=== PATIENT | female | born 1940 | race Asian ===

== ENCOUNTER 2019-09-18 11:24 | Inpatient (IN) | payer MEDICAID ==
[~2019-09-18] VITALS: Ht 152.4 cm; Wt 44.4 kg
[2019-09-18] MEDS ORDERED: SODIUM CHLORIDE 0.9% 100 ML ONE (11:37)
[2019-09-18] MEDS ORDERED: IOVERSOL 350 MG/ML 100 ML VIAL ONE (11:37)
[2019-09-18 11:40] LABS: BASOPHILS % (AUTO) 0.9 % (0.0-2.0); HEMATOCRIT 38.1 % (36-46); HEMOGLOBIN 12.9 g/dL (12.0-16.0); LYMPHOCYTES # (AUTO) 2.4 K/uL (1.0-4.8); LYMPHOCYTES % (AUTO) 44.6 % (22.0-44.0); MEAN CORPUSCULAR HEMOGLOBIN 29.4 pg (26.0-34.0); MEAN CORPUSCULAR HGB CONC 33.9 G/dL (31.0-37.0); MEAN CORPUSCULAR VOLUME 87 fL (80-100); MONOCYTES # (AUTO) 0.6 K/uL (0.1-1.0); MONOCYTES % (AUTO) 10.8 % (2.0-9.0); NEUTROPHILS # (AUTO) 2.3 K/uL (1.8-7.7); NEUTROPHILS % (AUTO) 41.7 % (40.0-70.0); PLATELET COUNT (AUTO) 207 K/uL (150-450); RED BLOOD CELL COUNT(AUTO) 4.39 MIL/uL (4.00-5.20); RED CELL DISTRIBUTION WIDTH 14.1 % (11.5-14.5)
[2019-09-18] MEDS ORDERED: NiCARDipine HCL 25 MG in DEXTROSE 5%-WATER 240 ML IV PRN ×2 (12:00→22:11)
[2019-09-18 12:03] LABS: CALCIUM, TOTAL 9.3 mg/dL (8.8-10.5); CREATININE 0.97 mg/dL (0.60-1.30); POTASSIUM 3.9 mmol/L (3.5-5.1)
[2019-09-18 12:06] LABS: PROTHROMBIN TIME 10.4 SEC (9.4-11.6)
[2019-09-18 12:08] LABS: ALBUMIN 3.8 g/dL (3.4-5.0); BILIRUBIN,TOTAL 0.7 mg/dL (0.1-1.0); TOTAL PROTEIN, SERUM 7.6 g/dL (6.4-8.2)
[2019-09-18] MEDS ORDERED: NITROGLYCERIN 2% (1 GM=INCH) PACKET TP ONE (12:45)
[2019-09-18] MEDS ORDERED: ASPIRIN 300 MG RECTAL SUPPOSITORY PR ONE (12:45)
[2019-09-18 13:16] LABS: AMPHET/METH SCREEN,URINE NEGATIVE (NEGATIVE); BARBITURATE SCREEN, URINE NEGATIVE (NEGATIVE); BENZODIAZEPINES SCREEN,URINE NEGATIVE (NEGATIVE); CANNABINOID SCREEN,URINE NEGATIVE (NEGATIVE); COCAINE SCREEN,URINE NEGATIVE (NEGATIVE); METHADONE SCREEN, URINE NEGATIVE (NEGATIVE); OPIATE SCREEN,URINE NEGATIVE (NEGATIVE)
[2019-09-18 13:18] LABS: PHENCYCLIDINE SCREEN,URINE NEGATIVE (NEGATIVE)
[2019-09-18 13:20] LABS: APPEARANCE,URINE CLEAR (CLEAR); BILIRUBIN,URINE NEGATIVE (NEGATIVE); GLUCOSE, URINE (UA) NEGATIVE (NEGATIVE); KETONES,URINE NEGATIVE (NEGATIVE); LEUKOCYTE ESTERASE ,URINE NEGATIVE (NEGATIVE); NITRATE,URINE NEGATIVE (NEGATIVE); OCCULT BLOOD,URINE NEGATIVE (NEGATIVE); PH,URINE 7.5 (5.0-8.0); PROTEIN,URINE NEGATIVE (NEGATIVE); UROBILINOGEN,URINE 0.2 mg/dL (<=1.0)
[2019-09-18 13:39] LABS: BACTERIA,URINE None Seen /HPF (None Seen); RBC,URINE None Seen /HPF (0-2); WBC,URINE None Seen /HPF (0-5)
[2019-09-18] MEDS ORDERED: ACETAMINOPHEN 325 MG TABLET PO PRN (15:15)
[2019-09-18] MEDS ORDERED: 0.9% SODIUM CHLORIDE 10 ML SYRINGE IVP PRN (15:15)
[2019-09-18] MEDS ORDERED: ONDANSETRON HCL 4 MG/2 ML VIAL IVP PRN ×2 (15:15→22:15)
[2019-09-18 15:30] VITALS: BP 156/66
[2019-09-18 16:00] VITALS: BP 156/66
[2019-09-18] MEDS ORDERED: ACETAMINOPHEN 650 MG RECTAL SUPPOSITORY PR PRN (17:15)
[2019-09-18 20:00] VITALS: BP 173/74
[2019-09-18] MEDS ORDERED: MAGNESIUM HYDROXIDE SUSPENSION 30 ML UDCUP PO PRN (22:15)
[2019-09-18] MEDS ORDERED: ALBUTEROL SULFATE 2.5 MG/0.5 ML NEB SOLUTION NEB PRN (22:15)
[2019-09-18] MEDS ORDERED: BISACODYL 10 MG RECTAL RECTAL SUPPOSITORY PR PRN (22:15)
[2019-09-18] MEDS ORDERED: MORPHINE SULFATE 2 MG/ML SYRINGE IVP PRN (22:15)
[2019-09-18] MEDS ORDERED: IPRATROPIUM BROMIDE 0.5 MG/2.5 ML NEB SOLUTION NEB PRN (22:15)
[2019-09-19] VITALS: BP 166/68
[2019-09-19] MEDS: HEPARIN SODIUM,PORCINE 5,000 UNITS/ML VIAL SQ SCH ×3 (00:29→17:06)
[2019-09-19 04:00] VITALS: BP 152/60
[2019-09-19 05:38] LABS: BASOPHILS % (AUTO) 0.7 % (0.0-2.0); EOSINOPHILS % (AUTO) 0.4 % (1.0-6.0); HEMATOCRIT 41.2 % (36-46); HEMOGLOBIN 14.2 g/dL (12.0-16.0); LYMPHOCYTES # (AUTO) 1.5 K/uL (1.0-4.8); LYMPHOCYTES % (AUTO) 16.8 % (22.0-44.0); MEAN CORPUSCULAR HEMOGLOBIN 29.7 pg (26.0-34.0); MEAN CORPUSCULAR HGB CONC 34.5 G/dL (31.0-37.0); MEAN CORPUSCULAR VOLUME 86 fL (80-100); MONOCYTES # (AUTO) 0.6 K/uL (0.1-1.0); MONOCYTES % (AUTO) 6.3 % (2.0-9.0); NEUTROPHILS % (AUTO) 75.8 % (40.0-70.0); PLATELET COUNT (AUTO) 226 K/uL (150-450); RED BLOOD CELL COUNT(AUTO) 4.78 MIL/uL (4.00-5.20); RED CELL DISTRIBUTION WIDTH 14.2 % (11.5-14.5)
[2019-09-19 05:49] LABS: GLUCOSE,POINT OF CARE 169 MG/DL (70-110)
[2019-09-19 06:07] LABS: BILIRUBIN,TOTAL 0.7 mg/dL (0.1-1.0); CALCIUM, TOTAL 9.2 mg/dL (8.8-10.5); CREATININE 1.18 mg/dL (0.60-1.30); FREE T4 (FREE THYROXINE) 1.15 ng/dL (0.76-1.46); POTASSIUM 3.7 mmol/L (3.5-5.1); THYROID STIMULATING HORMONE 2.38 uIU/mL (0.36-3.74); TOTAL PROTEIN, SERUM 8.5 g/dL (6.4-8.2)
[2019-09-19 08:00] VITALS: BP 195/46
[2019-09-19] MEDS ORDERED: ASPIRIN 81 MG EC TABLET PO SCH (09:00)
[2019-09-19 10:33] LABS: CHOL/HDL RATIO 4.8 (3.9-5.7)
[2019-09-19] MEDS: DOCUSATE SODIUM 100 MG CAPSULE PO SCH ×2 (11:29→22:02)
[2019-09-19] MEDS: ASPIRIN 81 MG CHEWABLE TABLET PO SCH (11:29)
[2019-09-19] MEDS: CLOPIDOGREL BISULFATE 75 MG TABLET PO SCH (11:29)
[2019-09-19 11:41] LABS: GLUCOSE,POINT OF CARE 145 MG/DL (70-110)
[2019-09-19 12:00] VITALS: BP 151/59
[2019-09-19] MEDS ORDERED: ENALAPRILAT DIHYDRATE 1.25 MG/ML VIAL IVP PRN (12:15)
[2019-09-19] MEDS: NIFEdipine 30 MG ER TABLET PO SCH (13:50)
[2019-09-19] MEDS: LISINOPRIL 5 MG TABLET PO SCH ×2 (13:50→22:02)
[2019-09-19] MEDS: ACETAMINOPHEN 325 MG TABLET PO PRN ×2 (15:46→22:16)
[2019-09-19 16:00] VITALS: BP 138/67
[2019-09-19 19:00] VITALS: BP 146/68
[2019-09-19] MEDS: ATORVASTATIN CALCIUM 40 MG TABLET PO SCH (22:02)
[2019-09-20] VITALS (7 sets, daily range): BP systolic 135–177; BP diastolic 60–75
[2019-09-20] MEDS: HEPARIN SODIUM,PORCINE 5,000 UNITS/ML VIAL SQ SCH ×4 (02:20→23:37)
[2019-09-20 06:54] LABS: BASOPHILS % (AUTO) 0.5 % (0.0-2.0); EOSINOPHILS % (AUTO) 0.6 % (1.0-6.0); HEMATOCRIT 35.6 % (36-46); HEMOGLOBIN 12.2 g/dL (12.0-16.0); LYMPHOCYTES # (AUTO) 2.3 K/uL (1.0-4.8); LYMPHOCYTES % (AUTO) 27.5 % (22.0-44.0); MEAN CORPUSCULAR HEMOGLOBIN 29.7 pg (26.0-34.0); MEAN CORPUSCULAR HGB CONC 34.1 G/dL (31.0-37.0); MEAN CORPUSCULAR VOLUME 87 fL (80-100); MONOCYTES # (AUTO) 0.9 K/uL (0.1-1.0); MONOCYTES % (AUTO) 11.5 % (2.0-9.0); NEUTROPHILS % (AUTO) 59.9 % (40.0-70.0); PLATELET COUNT (AUTO) 217 K/uL (150-450); RED CELL DISTRIBUTION WIDTH 14.2 % (11.5-14.5)
[2019-09-20 07:20] LABS: ALBUMIN 3.2 g/dL (3.4-5.0); BILIRUBIN,TOTAL 0.6 mg/dL (0.1-1.0); CALCIUM, TOTAL 9.1 mg/dL (8.8-10.5); CREATININE 1.43 mg/dL (0.60-1.30); PHOSPHORUS 4.4 mg/dL (2.5-4.9); POTASSIUM 3.6 mmol/L (3.5-5.1); TOTAL PROTEIN, SERUM 7.1 g/dL (6.4-8.2)
[2019-09-20] MEDS: LISINOPRIL 5 MG TABLET PO SCH ×2 (09:02→21:37)
[2019-09-20] MEDS: CLOPIDOGREL BISULFATE 75 MG TABLET PO SCH (09:02)
[2019-09-20] MEDS: ASPIRIN 81 MG CHEWABLE TABLET PO SCH (09:03)
[2019-09-20] MEDS: NIFEdipine 30 MG ER TABLET PO SCH ×2 (09:04→21:37)
[2019-09-20] MEDS: DOCUSATE SODIUM 100 MG CAPSULE PO SCH ×2 (09:04→21:36)
[2019-09-20] MEDS: ACETAMINOPHEN 325 MG TABLET PO PRN ×3 (09:09→21:37)
[2019-09-20] MEDS: ATORVASTATIN CALCIUM 40 MG TABLET PO SCH (21:36)
[2019-09-21 05:03] VITALS: BP 159/74
[2019-09-21 06:16] LABS: BASOPHILS % (AUTO) 0.8 % (0.0-2.0); EOSINOPHILS % (AUTO) 1.8 % (1.0-6.0); HEMOGLOBIN 11.9 g/dL (12.0-16.0); LYMPHOCYTES # (AUTO) 2.1 K/uL (1.0-4.8); LYMPHOCYTES % (AUTO) 27.8 % (22.0-44.0); MEAN CORPUSCULAR HEMOGLOBIN 29.2 pg (26.0-34.0); MEAN CORPUSCULAR HGB CONC 33.2 G/dL (31.0-37.0); MEAN CORPUSCULAR VOLUME 88 fL (80-100); MONOCYTES # (AUTO) 0.9 K/uL (0.1-1.0); MONOCYTES % (AUTO) 12.5 % (2.0-9.0); NEUTROPHILS # (AUTO) 4.2 K/uL (1.8-7.7); NEUTROPHILS % (AUTO) 57.1 % (40.0-70.0); PLATELET COUNT (AUTO) 193 K/uL (150-450); RED BLOOD CELL COUNT(AUTO) 4.09 MIL/uL (4.00-5.20); RED CELL DISTRIBUTION WIDTH 14.5 % (11.5-14.5)
[2019-09-21 06:39] LABS: BILIRUBIN,TOTAL 0.5 mg/dL (0.1-1.0); CREATININE 1.08 mg/dL (0.60-1.30); POTASSIUM 3.8 mmol/L (3.5-5.1)
[2019-09-21 07:22] VITALS: BP 149/78
[2019-09-21] MEDS: HEPARIN SODIUM,PORCINE 5,000 UNITS/ML VIAL SQ SCH ×2 (08:00→17:05)
[2019-09-21] MEDS: CLOPIDOGREL BISULFATE 75 MG TABLET PO SCH (09:02)
[2019-09-21] MEDS: NIFEdipine 30 MG ER TABLET PO SCH ×2 (09:02→20:56)
[2019-09-21] MEDS: ASPIRIN 81 MG CHEWABLE TABLET PO SCH (09:02)
[2019-09-21] MEDS: LISINOPRIL 5 MG TABLET PO SCH ×2 (09:02→20:56)
[2019-09-21] MEDS: DOCUSATE SODIUM 100 MG CAPSULE PO SCH ×2 (09:02→20:57)
[2019-09-21 10:59] VITALS: BP 135/63
[2019-09-21] MEDS: ACETAMINOPHEN 325 MG TABLET PO PRN ×2 (12:45→20:57)
[2019-09-21] MEDS: HYDROCODONE/ACETAMINOPHEN 5-325 MG TABLET PO PRN (15:46)
[2019-09-21 16:09] VITALS: BP 148/62
[2019-09-21 20:25] VITALS: BP 149/77
[2019-09-21] MEDS: ATORVASTATIN CALCIUM 40 MG TABLET PO SCH (20:56)
[2019-09-21 23:45] VITALS: BP 128/89
[2019-09-22] MEDS: HEPARIN SODIUM,PORCINE 5,000 UNITS/ML VIAL SQ SCH ×4 (00:02→23:02)
[2019-09-22 06:00] VITALS: BP 165/82
[2019-09-22 07:24] VITALS: BP 174/72
[2019-09-22] MEDS: NIFEdipine 30 MG ER TABLET PO SCH ×2 (07:50→21:03)
[2019-09-22] MEDS: CLOPIDOGREL BISULFATE 75 MG TABLET PO SCH (07:50)
[2019-09-22] MEDS: LISINOPRIL 5 MG TABLET PO SCH ×2 (07:50→21:04)
[2019-09-22] MEDS: DOCUSATE SODIUM 100 MG CAPSULE PO SCH ×2 (07:50→21:04)
[2019-09-22] MEDS: ASPIRIN 81 MG CHEWABLE TABLET PO SCH (07:51)
[2019-09-22 08:25] LABS: BASOPHILS % (AUTO) 0.5 % (0.0-2.0); EOSINOPHILS % (AUTO) 2.1 % (1.0-6.0); HEMATOCRIT 34.7 % (36-46); HEMOGLOBIN 11.6 g/dL (12.0-16.0); LYMPHOCYTES # (AUTO) 1.7 K/uL (1.0-4.8); LYMPHOCYTES % (AUTO) 23.4 % (22.0-44.0); MEAN CORPUSCULAR HEMOGLOBIN 29.3 pg (26.0-34.0); MEAN CORPUSCULAR HGB CONC 33.5 G/dL (31.0-37.0); MEAN CORPUSCULAR VOLUME 87 fL (80-100); MONOCYTES # (AUTO) 0.6 K/uL (0.1-1.0); MONOCYTES % (AUTO) 8.7 % (2.0-9.0); NEUTROPHILS # (AUTO) 4.8 K/uL (1.8-7.7); NEUTROPHILS % (AUTO) 65.3 % (40.0-70.0); PLATELET COUNT (AUTO) 196 K/uL (150-450); RED BLOOD CELL COUNT(AUTO) 3.97 MIL/uL (4.00-5.20); RED CELL DISTRIBUTION WIDTH 14.4 % (11.5-14.5)
[2019-09-22 08:38] LABS: ALANINE AMINOTRANSFERASE 24 U/L (12-78); ALBUMIN 3.1 g/dL (3.4-5.0); ALKALINE PHOSPHATASE < 11 U/L (46-116); ANION GAP 5 mmol/L (8-16); ASPARTATE AMINOTRANSFERASE 32 U/L (15-37); BILIRUBIN,TOTAL 0.3 mg/dL (0.1-1.0); CALCIUM, TOTAL 8.8 mg/dL (8.8-10.5); CARBON DIOXIDE 30 mmol/L (22-29); CHLORIDE 105 mmol/L (98-107); CREATININE 0.75 mg/dL (0.60-1.30); GLUCOSE,RANDOM 121 mg/dL (70-110); SODIUM SERUM 140 mmol/L (136-145); TOTAL PROTEIN, SERUM 7.1 g/dL (6.4-8.2); UREA NITROGEN, BLOOD 28 mg/dL (7-18)
[2019-09-22 08:44] LABS: GLOMERULAR FILTR. RATE CALC > 60 mL/min (>60)
[2019-09-22 11:13] VITALS: BP 157/61
[2019-09-22] MEDS: ACETAMINOPHEN 325 MG TABLET PO PRN (12:04)
[2019-09-22] MEDS: HYDROCODONE/ACETAMINOPHEN 5-325 MG TABLET PO PRN (14:54)
[2019-09-22 15:30] VITALS: BP 141/69
[2019-09-22 21:03] VITALS: BP 172/92
[2019-09-22] MEDS: ATORVASTATIN CALCIUM 40 MG TABLET PO SCH (21:04)
[2019-09-22 23:55] VITALS: BP 207/92
[2019-09-23] VITALS (8 sets, daily range): BP systolic 137–187; BP diastolic 63–94
[2019-09-23] MEDS: ACETAMINOPHEN 325 MG TABLET PO PRN ×3 (01:17→20:31)
[2019-09-23 07:56] LABS: BASOPHILS % (AUTO) 0.4 % (0.0-2.0); EOSINOPHILS % (AUTO) 0.6 % (1.0-6.0); HEMATOCRIT 33.6 % (36-46); HEMOGLOBIN 11.4 g/dL (12.0-16.0); LYMPHOCYTES # (AUTO) 1.8 K/uL (1.0-4.8); LYMPHOCYTES % (AUTO) 17.7 % (22.0-44.0); MEAN CORPUSCULAR HEMOGLOBIN 29.8 pg (26.0-34.0); MEAN CORPUSCULAR VOLUME 88 fL (80-100); MONOCYTES % (AUTO) 9.7 % (2.0-9.0); NEUTROPHILS # (AUTO) 7.4 K/uL (1.8-7.7); NEUTROPHILS % (AUTO) 71.6 % (40.0-70.0); PLATELET COUNT (AUTO) 223 K/uL (150-450); RED BLOOD CELL COUNT(AUTO) 3.83 MIL/uL (4.00-5.20); RED CELL DISTRIBUTION WIDTH 14.2 % (11.5-14.5)
[2019-09-23] MEDS: NIFEdipine 30 MG ER TABLET PO SCH ×2 (08:03→20:26)
[2019-09-23] MEDS: LISINOPRIL 5 MG TABLET PO SCH ×2 (08:03→20:26)
[2019-09-23] MEDS: CLOPIDOGREL BISULFATE 75 MG TABLET PO SCH (08:03)
[2019-09-23] MEDS: ASPIRIN 81 MG CHEWABLE TABLET PO SCH (08:03)
[2019-09-23] MEDS: DOCUSATE SODIUM 100 MG CAPSULE PO SCH ×2 (08:03→20:26)
[2019-09-23] MEDS: HEPARIN SODIUM,PORCINE 5,000 UNITS/ML VIAL SQ SCH ×2 (08:04→16:29)
[2019-09-23] MEDS: HYDROCODONE/ACETAMINOPHEN 5-325 MG TABLET PO PRN (08:11)
[2019-09-23 08:19] LABS: ALBUMIN 3.1 g/dL (3.4-5.0); BILIRUBIN,TOTAL 0.3 mg/dL (0.1-1.0); CALCIUM, TOTAL 9.3 mg/dL (8.8-10.5); CREATININE 0.98 mg/dL (0.60-1.30); POTASSIUM 4.1 mmol/L (3.5-5.1); TOTAL PROTEIN, SERUM 7.4 g/dL (6.4-8.2)
[2019-09-23] MEDS: METOPROLOL TARTRATE 25 MG TABLET PO SCH (20:26)
[2019-09-23] MEDS: ATORVASTATIN CALCIUM 40 MG TABLET PO SCH (20:26)
[2019-09-24] MEDS: HEPARIN SODIUM,PORCINE 5,000 UNITS/ML VIAL SQ SCH ×4 (00:15→23:20)
[2019-09-24 05:47] VITALS: BP 172/76
[2019-09-24] MEDS: ACETAMINOPHEN 325 MG TABLET PO PRN ×2 (05:57→20:30)
[2019-09-24 06:57] LABS: BASOPHILS % (AUTO) 0.4 % (0.0-2.0); HEMATOCRIT 31.9 % (36-46); HEMOGLOBIN 10.8 g/dL (12.0-16.0); LYMPHOCYTES # (AUTO) 2.2 K/uL (1.0-4.8); LYMPHOCYTES % (AUTO) 22.8 % (22.0-44.0); MEAN CORPUSCULAR HEMOGLOBIN 29.6 pg (26.0-34.0); MEAN CORPUSCULAR HGB CONC 33.7 G/dL (31.0-37.0); MEAN CORPUSCULAR VOLUME 88 fL (80-100); MONOCYTES # (AUTO) 0.9 K/uL (0.1-1.0); MONOCYTES % (AUTO) 9.4 % (2.0-9.0); NEUTROPHILS # (AUTO) 6.2 K/uL (1.8-7.7); NEUTROPHILS % (AUTO) 65.4 % (40.0-70.0); PLATELET COUNT (AUTO) 236 K/uL (150-450); RED BLOOD CELL COUNT(AUTO) 3.63 MIL/uL (4.00-5.20); RED CELL DISTRIBUTION WIDTH 14.3 % (11.5-14.5)
[2019-09-24 07:38] LABS: BILIRUBIN,TOTAL 0.2 mg/dL (0.1-1.0); CALCIUM, TOTAL 9.4 mg/dL (8.8-10.5); POTASSIUM 4.1 mmol/L (3.5-5.1); TOTAL PROTEIN, SERUM 7.7 g/dL (6.4-8.2)
[2019-09-24 07:51] VITALS: BP 153/72
[2019-09-24] MEDS: NIFEdipine 30 MG ER TABLET PO SCH ×2 (09:06→20:29)
[2019-09-24] MEDS: DOCUSATE SODIUM 100 MG CAPSULE PO SCH ×2 (09:06→20:29)
[2019-09-24] MEDS: LISINOPRIL 5 MG TABLET PO SCH ×2 (09:06→20:29)
[2019-09-24] MEDS: CLOPIDOGREL BISULFATE 75 MG TABLET PO SCH (09:07)
[2019-09-24] MEDS: ASPIRIN 81 MG CHEWABLE TABLET PO SCH (09:07)
[2019-09-24] MEDS: METOPROLOL TARTRATE 25 MG TABLET PO SCH ×2 (09:07→20:29)
[2019-09-24 11:24] VITALS: BP 157/66
[2019-09-24 15:41] VITALS: BP 151/75
[2019-09-24 20:28] VITALS: BP 136/82
[2019-09-24] MEDS: ATORVASTATIN CALCIUM 40 MG TABLET PO SCH (20:28)
[2019-09-25 00:01] VITALS: BP 136/65
[2019-09-25] MEDS: ACETAMINOPHEN 325 MG TABLET PO PRN ×3 (01:54→21:27)
[2019-09-25 04:18] VITALS: BP 152/60
[2019-09-25 06:37] LABS: BASOPHILS % (AUTO) 0.7 % (0.0-2.0); EOSINOPHILS % (AUTO) 2.6 % (1.0-6.0); HEMATOCRIT 30.2 % (36-46); HEMOGLOBIN 10.2 g/dL (12.0-16.0); LYMPHOCYTES # (AUTO) 2.7 K/uL (1.0-4.8); LYMPHOCYTES % (AUTO) 25.8 % (22.0-44.0); MEAN CORPUSCULAR HEMOGLOBIN 29.8 pg (26.0-34.0); MEAN CORPUSCULAR HGB CONC 33.7 G/dL (31.0-37.0); MEAN CORPUSCULAR VOLUME 89 fL (80-100); MONOCYTES # (AUTO) 1.1 K/uL (0.1-1.0); MONOCYTES % (AUTO) 10.4 % (2.0-9.0); NEUTROPHILS # (AUTO) 6.3 K/uL (1.8-7.7); NEUTROPHILS % (AUTO) 60.5 % (40.0-70.0); PLATELET COUNT (AUTO) 252 K/uL (150-450); RED BLOOD CELL COUNT(AUTO) 3.41 MIL/uL (4.00-5.20)
[2019-09-25 06:56] LABS: ALBUMIN 2.9 g/dL (3.4-5.0); BILIRUBIN,TOTAL 0.3 mg/dL (0.1-1.0); CALCIUM, TOTAL 9.1 mg/dL (8.8-10.5); CREATININE 0.98 mg/dL (0.60-1.30); POTASSIUM 4.1 mmol/L (3.5-5.1); TOTAL PROTEIN, SERUM 7.3 g/dL (6.4-8.2)
[2019-09-25 08:08] VITALS: BP 144/59
[2019-09-25] MEDS: HEPARIN SODIUM,PORCINE 5,000 UNITS/ML VIAL SQ SCH ×2 (09:17→16:16)
[2019-09-25] MEDS: NIFEdipine 30 MG ER TABLET PO SCH ×2 (09:17→20:45)
[2019-09-25] MEDS: ASPIRIN 81 MG CHEWABLE TABLET PO SCH (09:17)
[2019-09-25] MEDS: METOPROLOL TARTRATE 25 MG TABLET PO SCH ×2 (09:17→20:45)
[2019-09-25] MEDS: DOCUSATE SODIUM 100 MG CAPSULE PO SCH ×2 (09:17→20:45)
[2019-09-25] MEDS: LISINOPRIL 5 MG TABLET PO SCH ×2 (09:17→20:45)
[2019-09-25] MEDS: CLOPIDOGREL BISULFATE 75 MG TABLET PO SCH (09:17)
[2019-09-25 11:43] VITALS: BP 169/64
[2019-09-25] MEDS ORDERED: ATOR40TA28 PO (14:25)
[2019-09-25] MEDS ORDERED: ASPI-728 PO (14:25)
[2019-09-25] MEDS ORDERED: CLOP75TA3 PO (14:26)
[2019-09-25] MEDS ORDERED: LISI-661 PO (14:26)
[2019-09-25] MEDS ORDERED: NIFE30TA5 PO (14:32)
[2019-09-25] MEDS ORDERED: METO25 PO (14:32)
[2019-09-25 15:41] LABS: HEMATOCRIT 29.3 % (36-46); HEMOGLOBIN 9.9 g/dL (12.0-16.0)
[2019-09-25 16:20] VITALS: BP 150/65
[2019-09-25 19:21] LABS: HEMATOCRIT 30.1 % (36-46)
[2019-09-25 20:17] VITALS: BP 154/68
[2019-09-25] MEDS: ATORVASTATIN CALCIUM 40 MG TABLET PO SCH (20:45)
[2019-09-26 00:51] VITALS: BP 134/60
[2019-09-26] MEDS: ACETAMINOPHEN 325 MG TABLET PO PRN ×2 (04:22→17:17)
[2019-09-26 05:01] VITALS: BP 144/66
[2019-09-26 07:37] VITALS: BP 153/65
[2019-09-26 08:39] LABS: BASOPHILS % (AUTO) 0.5 % (0.0-2.0); EOSINOPHILS % (AUTO) 1.9 % (1.0-6.0); HEMOGLOBIN 10.3 g/dL (12.0-16.0); LYMPHOCYTES # (AUTO) 1.7 K/uL (1.0-4.8); LYMPHOCYTES % (AUTO) 17.6 % (22.0-44.0); MEAN CORPUSCULAR HEMOGLOBIN 29.6 pg (26.0-34.0); MEAN CORPUSCULAR HGB CONC 33.3 G/dL (31.0-37.0); MEAN CORPUSCULAR VOLUME 89 fL (80-100); MONOCYTES # (AUTO) 1.2 K/uL (0.1-1.0); MONOCYTES % (AUTO) 12.6 % (2.0-9.0); NEUTROPHILS # (AUTO) 6.6 K/uL (1.8-7.7); NEUTROPHILS % (AUTO) 67.4 % (40.0-70.0); PLATELET COUNT (AUTO) 274 K/uL (150-450); RED BLOOD CELL COUNT(AUTO) 3.49 MIL/uL (4.00-5.20)
[2019-09-26 08:48] LABS: CALCIUM, TOTAL 9.2 mg/dL (8.8-10.5); CREATININE 1.03 mg/dL (0.60-1.30)
[2019-09-26] MEDS: HEPARIN SODIUM,PORCINE 5,000 UNITS/ML VIAL SQ SCH ×3 (10:13→17:17)
[2019-09-26] MEDS: ASPIRIN 81 MG CHEWABLE TABLET PO SCH (10:14)
[2019-09-26] MEDS: METOPROLOL TARTRATE 25 MG TABLET PO SCH (10:14)
[2019-09-26] MEDS: CLOPIDOGREL BISULFATE 75 MG TABLET PO SCH (10:14)
[2019-09-26] MEDS: NIFEdipine 30 MG ER TABLET PO SCH (10:14)
[2019-09-26] MEDS: LISINOPRIL 5 MG TABLET PO SCH (10:14)
[2019-09-26] MEDS: DOCUSATE SODIUM 100 MG CAPSULE PO SCH (10:14)
[2019-09-26 11:00] VITALS: BP 158/70
[2019-09-26 15:07] VITALS: BP 153/65
== END 2019-09-26 18:10 | disposition home or self-care (01) | DRG 65 ==
LOC: EMS 11:25 → ICU 15:07 → 5S 09-19 18:37
PROVIDERS: ADMIT Hospitalist; ATTEND Hospitalist
DX: I63.9 Cerebral infarction, unspecified (principal); G81.94 Hemiplegia, unspecified affecting left nondominant side; E44.0 Moderate protein-calorie malnutrition; Z68.1 Body mass index [BMI] 19.9 or less, adult; I16.1 Hypertensive emergency; I10 Essential (primary) hypertension; I66.09 Occlusion and stenosis of unspecified middle cerebral artery; E11.9 Type 2 diabetes mellitus without complications; R47.81 Slurred speech; H91.90 Unspecified hearing loss, unspecified ear; R29.705 NIHSS score 5; R29.810 Facial weakness; Z79.82 Long term (current) use of aspirin; Z79.899 Other long term (current) drug therapy
CPT/HCPCS: 51702; 70496; 70551; 82271; 83036; 83735; 84100; 84439; 84443; 85014; 85018; 86850; 86900; 86901; 87081; 92526; 92610; 93005; 93306; 93880; 96365; 97110; 97112; 97163; 97167; 97530; 97535; 99291; G0378; J1644; J3490; J7050; J7060